=== PATIENT | male | born 2000 | race Caucasian/White ===

== ENCOUNTER 2021-08-09 21:30 | Emergency (ER) | payer MEDICAID, SELFPAY ==
[2021-08-09 21:32] VITALS: BP 152/68; PULSE 98; RESP 16; TEMP 36.6; O2SAT 98; BMI 28.8
--- NOTE | 2021-08-09 22:03 | EDS_ITS ---
HPI History of Present Illness Chief Complaint: Dental Narrative Narrative: Patient presenting for evaluation secondary to dental pain. Patient is currently in opiate rehab with 180. Patient states that he has been dealing with multiple months of dental pain. He actually states that he has scheduled for some dental extractions and root canals coming up in the next coming weeks but he has been dealing with increased issues with dental pain and has been having some swelling of the right side of his face. He was on 2 weeks of amoxicillin, nurse practitioner with 180 changed him to Flagyl today. States that he has been taking [id number] without significant relief. He den ies any fevers. Denies any immunosuppression. Review of systems otherwise negative. PFSH PFSH Medical History no medical history Home Medications clindamycin HCl 300 mg PO 4X/DAY #80 capsule 08/09/21 [Rx Last Taken Unknown] ketorolac 10 mg PO Q6H 5 Days #20 tab 08/09/21 [Rx Last Taken Unknown] Allergy/AdvReac Type Severity Reaction Status Date / Time No Known Allergies Allergy Verified 08/09/21 21:34 Social History Smoking Status: Unknown if ever smoked ROS ROS ED Constitutional Constitutional ED: Denies fever(s) ENT ENT ED: Reports other Details: Dental pain Respiratory/Chest Respiratory/Chest: Denies cough Gastrointestinal Gastrointestinal: Denies vomiting Integumentary Denies rash Neurologic Neurologic: Denies headache(s) Allergic/Immunologic Allergic/Immunologic ED: Reports mouth swelling; Denies tongue swelling EXAM Physical Exam Const Vital Signs: 08/09/21 21:32 Temperature 97.9 F Temperature Source Temporal Pulse Rate 98 Respiratory Rate 16 Blood Pressure 152/68 H Blood Pressure Mean 96 Pulse Ox 98 Oxygen Delivery Method Room Air Positive well nourished and well developed General Appearance ED: well developed HEENT HEENT Narrative: Oral exam shows the patient to have dental caries and to his right maxillary molars. There is some swelling of the cheek overlying that area but no evidence of focal gum swelling or abscess. No significant trismus although the patient does complain of some pain with opening his mouth. Soft sublingual space normal posterior pharynx. No signs of deep space infection is noted. Eyes EOMs intact bilaterally Neck no lymphadenopathy and supple Resp normal respiratory effort and clear to auscultation bilaterally Cardio regular rate, regular rhythm and no murmurs Neuro oriented x3 Sensorium / Orientation: alert Psych mental status grossly normal Skin no rashes or lesions noted MDM MDM MDM Narrative Medical decision making narrative: Patient presented with a persistent dental pain and possible dental infection with some facial swelling. No signs of deep space infection. Patient was recently changed to Flagyl which I do not think is going to provide adequate coverage for intraoral rebel. Patient will be changed to clindamycin. Patient is in drug rehabilitation, and requested not to receive any opiates. Patient be given a dose of Toradol and will be discharged with a course of the same. He is to follow-up with his dentist. Discharge Plan Triage Chief Complaint: Dental ED Provider: Efrain Lea Dx/Rx/DC Orders Clinical Impression: Dental caries Instructions: ED Dental Pain, ED Dental Cavity Prescriptions: New ketorolac 10 mg tablet 10 mg PO Q6H 5 Days Qty: 20 RF: 0 clindamycin HCl 150 mg capsule 300 mg PO 4X/DAY Qty: 80 RF: 0 Primary Care Provider: Care Physician,No Primary Referrals: NOT,DEFINED [NON-STAFF] - Activity Restrictions/Additional Instructions: Follow-up with your dentist as previously scheduled Disposition Disposition: Home, Self Care
[2021-08-09] MEDS: Clindamycin HCl 150 MG Capsule 300 MG PO (22:10)
[2021-08-09] MEDS: Ketorolac 30 MG/ML Syringe IM (22:10)
[2021-08-09 23:01] VITALS: RESP 6
== END 2021-08-09 23:01 | disposition home or self-care (01) ==
PROVIDERS: Emergency Provider Emergency Medicine
DX: K02.9 Dental caries, unspecified (principal)
CPT/HCPCS: 96372; 99283

== ENCOUNTER 2022-06-13 17:34 | Emergency (ER) | payer MEDICAID, SELFPAY ==
[2022-06-13 17:36] VITALS: BP 145/79; PULSE 98; RESP 16; TEMP 36.6; O2SAT 98; BMI 29.5
[2022-06-13 19:56] VITALS: BP 139/68; PULSE 79; RESP 18; TEMP 37.1; O2SAT 100; O2SAT 99
[2022-06-13 20:00] VITALS: BP 139/68; PULSE 79; RESP 18; TEMP 37.1; O2SAT 99
--- NOTE | 2022-06-13 20:33 | EDS_ITS ---
HPI History of Present Illness Chief Complaint: Wound Informant: patient Onset/Context/Timing Onset: Yesterday Context: Gradual Onset Timing: Continuous Quality: Sharp, aching Location: Right cheek Worsened by: Nothing Relieved by: Nothing Narrative Narrative: Patient presents with facial swelling that has been getting worse since yesterday. Patient was started on amoxicillin for this. Patient states it is over his right face. Patient states it is sharp and aching. Patient states nothing makes it better nothing makes it worse. Patient denies any fevers or chills. Patient does admit to a mild headache. Patient denies any difficulty breathing or difficulty swallowing. Patient denies any visual changes. [facility] Medical History Anxiety Taylor's palsy Depression Encounter for screening for COVID-19 Home Medications amoxicillin 875 mg-potassium clavulanate 125 mg tablet 875 mg PO Q12H #20 TABLETS 06/13/22 [Rx Last Taken Unknown] naltrexone 50 mg tablet 50 mg PO DAILY 06/13/22 [History Last Taken Unknown] sertraline 50 mg tablet 50 mg PO DAILY 06/13/22 [History Last Taken Unknown] sulfamethoxazole 800 mg-trimethoprim 160 mg tablet (Bactrim DS) 1 tab PO BID 06/13/22 [History Last Taken Unknown] trazodone 100 mg tablet 100 mg PO DAILY 06/13/22 [History Last Taken Unknown] Allergy/AdvReac Type Severity Reaction Status Date / Time No Known Allergies Allergy Verified 06/13/22 20:04 Social History Smoking Status: Current every day smoker tobacco type: e-cigarettes ROS ROS ED Constitutional Constitutional ED: Reports chills and subjective; Denies fever(s) Eyes Eyes: Denies blurry vision or change in vision ENT ENT ED: Denies rhinorrhea or sore throat Cardiovascular Cardiovascular: Denies chest pain or palpitations Respiratory/Chest Respiratory/Chest: Denies cough or dyspnea Gastrointestinal Gastrointestinal: Denies nausea or vomiting Genitourinary Genitourinary ED: Denies dysuria or hematuria Musculoskeletal Musculoskeletal: Denies back pain or neck pain Integumentary Reports abscess; Denies rash Neurologic Neurologic: Reports headache(s); Denies weakness Allergic/Immunologic Allergic/Immunologic ED: Denies mouth swelling or urticaria EXAM Physical Exam Const Vital Signs: 06/13/22 17:36 06/13/22 19:56 06/13/22 19:56 Temperature 97.9 F 98.8 F 98.8 F Temperature Source Temporal Temporal Temporal Pulse Rate 98 79 79 Respiratory Rate 16 18 18 Blood Pressure 145/79 H 139/68 H 139/68 H Blood Pressure Mean 101 91 91 Pulse Ox 98 99 100 Oxygen Delivery Method Room Air Room Air Room Air 06/13/22 20:00 06/13/22 21:23 06/13/22 21:23 Temperature 98.8 F 99.5 F H 99.5 F H Temperature Source Temporal Temporal Temporal Pulse Rate 79 67 79 Respiratory Rate 18 18 18 Blood Pressure 139/68 H 125/75 H 125/75 H Blood Pressure Mean 91 91 91 Pulse Ox 99 99 100 Oxygen Delivery Method Room Air Room Air Room Air Positive well nourished and well developed General Appearance ED: well developed and NAD HEENT Reports moist mucous membranes HEENT Narrative: There is edema and tenderness over the right cheek area. There is no induration. There is no fluctuance. Oral mucosa pink and moist. There is no dental caries noted. There is no tenderness over the upper or lower molars. Oropharynx is clear. Airway is patent. Neck is supple. Trachea is midline. There is no JVD or lymphadenopathy. There is no sublingual edema or evidence of Yazan's angina. Eyes PERRL and EOMs intact bilaterally Neck no lymphadenopathy, supple and no JVD Resp normal respiratory effort and clear to auscultation bilaterally Cardio regular rate and regular rhythm Neuro oriented x3, CN's II-XII intact bilaterally and no sensory deficits noted Sensorium / Orientation: alert Motor Exam: strength 5/5 throughout Psych mental status grossly normal MDM MDM MDM Narrative Medical decision making narrative: Patient was given a dose of Unasyn here. CBC was within normal limits. Basic metabolic profile was within normal limits. Blood cultures were obtained and are pending. Patient was given a prescription for Augmentin. Patient was instructed to stop the amoxicillin. Patient was instructed to follow-up with his primary care physician in 5 to 7 days. Patient understood and was agreeable with the plan. All questions were answered. Lab Data Attestation: I reviewed the patient's lab results. Labs: Laboratory Results - last 24 hr 06/13/22 06/13/22 20:44 20:44 WBC 9.6 RBC 4.78 Hgb 14.5 Hct 45.1 MCV 94.4 H MCH 30.3 MCHC 32.2 RDW Std Deviation 42.4 RDW Coeff of Santino 12.0 Plt Count 307 MPV 8.9 Immature Gran % (Auto) 0.400 Neut % (Auto) 75.8 H Lymph % (Auto) 13.5 L [place] % (Auto) 9.5 Eos % (Auto) 0.5 Baso % (Auto) 0.3 Absolute Neuts (auto) 7.3 Absolute Lymphs (auto) 1.30 Nucleated RBC % 0 Sodium 139 Potassium 3.7 Chloride 105 Carbon Dioxide 28.0 Anion Gap 6 BUN 7 Creatinine 1.00 Estim Creat Clear Calc 134.72 Est GFR (MDRD) Af Amer 119 Est GFR (MDRD) Non-Af 99 BUN/Creatinine Ratio 7.0 L Glucose 88 Calcium 9.3 Discharge Plan Triage Chief Complaint: Wound ED Provider: Juvencio Amezcua Dx/Rx/DC Orders Clinical Impression: Facial cellulitis Instructions: ED Cellulitis, Facial Prescriptions: New amoxicillin-pot clavulanate [amoxicillin-pot clavulanate] 875 MG tablet 875 mg PO Q12H Qty: 20 0RF Discontinued amoxicillin 500 mg capsule 500 mg PO TID No Action naltrexone 50 mg Tablet 50 mg PO DAILY sulfamethoxazole-trimethoprim [Bactrim DS] 800-160 mg Tablet 1 tab PO BID trazodone 100 mg Tablet 100 mg PO DAILY sertraline 50 mg Tablet 50 mg PO DAILY Primary Care Provider: Care Physician,No Primary Referrals: Care Physician,No Primary [Primary Care Provider] - Kourtney Lockett [Non-Staff] - 3-5 Days Disposition Disposition: Home, Self Care
[2022-06-13 20:57] LABS: Absolute Neutrophil Count 7.3 X10^3/uL (2.0-7.7); Basophil# 0.03 X10^3/uL; Basophil% 0.3 % (0-1); Eosinophil# 0.05 X10^3/uL; Eosinophils% 0.5 % (0-5); Hematocrit 45.1 % (40-54); Hemoglobin 14.5 g/dL (13.0-16.5); Lymphocyte % 13.5 % (19-41); Mean Corp Hgb Conc 32.2 g/dL (32-36); Mean Corpuscular Hgb 30.3 pg (27.0-32.0); Mean Corpuscular Volume 94.4 fL (80-94); Mean Platelet Vol. 8.9 fl (6.2-12.0); Monocyte# 0.91 X10^3/uL; Monocyte% 9.5 % (0-10); NRBC Flagged by Analyzer 0 % (0-5); Neutrophil # 7.27 X10^3/uL (2.7-7.7); Neutrophil % 75.8 % (47-70); Platelet Count 307 K/mm3 (150-450); RBC Distribution Width SD 42.4 fl (35.1-43.9); Red Blood Count 4.78 M/mm3 (4.6-6.2); White Blood Count 9.6 K/mm3 (4.4-11.0)
[2022-06-13 21:12] LABS: Anion Gap 6 (5-15); BUN 7 mg/dL (7-18); Calcium,Total 9.3 mg/dL (8.5-10.1); Chloride 105 mmol/L (98-107); EST Glomerular Filtration Rate 99 mL/min (>60); Est Glom Filt Rate - Afr Amer 119 mL/min (>60); Estimated Creatinine Clearance 134.72 ml/min; Glucose 88 mg/dL (74-106); Potassium 3.7 mmol/L (3.5-5.1); Sodium Level 139 mmol/L (136-145)
[2022-06-13 21:23] VITALS: BP 125/75; PULSE 67; PULSE 79; RESP 18; TEMP 37.5; O2SAT 100; O2SAT 99
== END 2022-06-13 22:50 | disposition home or self-care (01) ==
PROVIDERS: Emergency Provider Emergency Medicine; Visit Provider Emergency Medicine
DX: L03.211 Cellulitis of face (principal); F17.290 Nicotine dependence, other tobacco product, uncomplicated; R51.9 Headache, unspecified
CPT/HCPCS: 36415; 80048; 85025; 87040; 96365; 99283; J7050; A4216; J0295

== ENCOUNTER 2022-07-21 01:18 | Emergency (ER) | payer MEDICAID, SELFPAY ==
[2022-07-21 01:19] VITALS: BP 139/70; PULSE 79; RESP 18; TEMP 36.6; O2SAT 99; BMI 31.4
--- NOTE | 2022-07-21 02:17 | CT_ITS ---
STUDY: CT ABDOMEN AND PELVIS WITH CONTRAST REASON FOR EXAM: Male, 22 years old. RLQ pain. TECHNIQUE: IV Contrast: IV 100mL Isovue-370 Enteric contrast: None administered. Axial images obtained. Coronal and sagittal reformatted images provided. Individualized dose optimization techniques were used for this CT. COMPARISON: None. FINDINGS: Partially visualized lower chest: Lung bases unremarkable. Liver: No concerning lesions. Gallbladder and biliary tree: No visible gallstones. No pericholecystic inflammation. No biliary ductal dilation. Pancreas: No pancreatic lesions or inflammation. Spleen: Normal size, no splenic lesions. Adrenal glands: No concerning masses. Kidneys and ureters: No hydronephrosis or renal stones. No concerning masses. No ureteral dilation. Bowel: Normal appendix. No obstruction or inflammation of the bowel. Urinary bladder: No stones or wall thickening. Reproductive:Normal size prostate. Vascular: No abdominal aortic aneurysm. Patent portal, mesenteric and systemic veins. Retroperitoneal and peritoneal spaces: No ascites or free air. No retroperitoneal lesions. Osseous: No acute osseous abnormality. Abdominal and pelvic wall: No concerning findings. CT/Abdomen/Pelvis W IV Cont ONLY IMPRESSION: No acute or concerning findings. Electronically Signed: Emre Bolanos MD at 3:43 EDT Reading Location ID and State: [address] [place] [address] Tel , Service support ,
[2022-07-21 02:24] LABS: Mucous, Urine 0 SEEN /hpf (<or=2+); Squamous Epithelial Cells - UA 0 SEEN /hpf (0-5)
[2022-07-21] MEDS: 0.9% Normal Saline 1,000 ML 999 ML IV (02:26)
[2022-07-21 02:31] LABS: Absolute Lymphocyte Count 2.85 X10^3/uL (0.83-4.51); Basophil# 0.09 X10^3/uL; Basophil% 1.1 % (0-1); Eosinophil# 0.41 X10^3/uL; Hematocrit 41.9 % (40-54); Hemoglobin 14.1 g/dL (13.0-16.5); Lymphocyte # 2.85 X10^3/ul (0.83-4.51); Lymphocyte % 34.8 % (19-41); Mean Corp Hgb Conc 33.7 g/dL (32-36); Mean Corpuscular Hgb 31.7 pg (27.0-32.0); Mean Corpuscular Volume 94.2 fL (80-94); Mean Platelet Vol. 9.3 fl (6.2-12.0); Monocyte# 0.76 X10^3/uL; Monocyte% 9.3 % (0-10); NRBC Flagged by Analyzer 0 % (0-5); Neutrophil # 4.01 X10^3/uL (2.7-7.7); Neutrophil % 49.1 % (47-70); Platelet Count 307 K/mm3 (150-450); RBC Distribution Width CV 12.4 % (11.6-14.6); RBC Distribution Width SD 43.2 fl (35.1-43.9); Red Blood Count 4.45 M/mm3 (4.6-6.2); White Blood Count 8.2 K/mm3 (4.4-11.0)
[2022-07-21 02:32] LABS: Color, Urine Yellow (Yellow); Glucose, Dipstick Normal (Normal); Ketone-Dipstick 5 mg/dl (Negative); Leukocyte Esterase-Dipstick 25 /ul (Negative); Nitrite-Dipstick Negative (Negative); Occult Blood-Urine 10 /ul (Negative); Protein-Dipstick Negative (Negative); Urine Bilirubin Dipstick Negative (Negative); Urine Clarity Clear (Clear); Urine Urobilinogen 1 mg/dl (Normal)
[2022-07-21 02:48] LABS: Bacteria RARE /hpf (None Seen); Red Blood Cells-Urine 0-5 SEEN /hpf (0-5); White Blood Cells 0-5 SEEN /hpf (0-5)
[2022-07-21 03:06] LABS: Lactic Acid 1.1 mmol/L (0.4-1.9)
[2022-07-21 03:07] LABS: AST(SGOT) 15 U/L (15-37); Alanine Aminotransfer ALT/SGPT 19 U/L (16-61); Albumin, Serum 3.7 g/dL (3.2-5.0); Alkaline Phosphatase 70 U/L (45-117); Anion Gap 6 (5-15); BUN 13 mg/dL (7-18); Bilirubin, Direct 0.09 mg/dL (0.00-0.30); Calcium,Total 8.6 mg/dL (8.5-10.1); Chloride 107 mmol/L (98-107); Creatinine, Serum 1.08 mg/dL (0.70-1.30); EST Glomerular Filtration Rate 90 mL/min (>60); Est Glom Filt Rate - Afr Amer 109 mL/min (>60); Estimated Creatinine Clearance 123.68 ml/min; Globulin 3.1 g/dL (2.2-4.2); Glucose 113 mg/dL (74-106); Lipase 113 U/L (73-393); Potassium 3.6 mmol/L (3.5-5.1); Protein, Total 6.8 g/dL (6.4-8.2); Sodium Level 140 mmol/L (136-145)
--- NOTE | 2022-07-21 03:58 | EX.ED.DYSGE1 ---
HPI History of Present Illness Chief Complaint: Abd Pain Narrative Narrative: Patient is a 22-year-old male with past medical history of opioid abuse. He states that for years he has been getting intermittent abdominal spasm/pain. He states however that throughout the day today he has had persistent pain mainly in his right lower quadrant which is more intense and more persistent than any pain he has had in the past. He denies fevers chills nausea vomiting diarrhea dysuria or hematuria. He denies any trauma or excessive activity. He states that because of the prolonged nature of the pain and the fact is more severe he was concerned this may be different than his baseline and therefore comes in for evaluation [facility] Medical History Anxiety Taylor's palsy Depression Encounter for screening for COVID-19 Home Medications naltrexone 50 mg tablet 50 mg PO DAILY 06/13/22 [History Last Taken Unknown] sertraline 50 mg tablet 75 mg PO DAILY 06/13/22 [History Last Taken Unknown] trazodone 100 mg tablet 100 mg PO QHS 06/13/22 [History Last Taken Unknown] Allergy/AdvReac Type Severity Reaction Status Date / Time No Known Allergies Allergy Verified 07/21/22 01:19 Social History Smoking Status: Current every day smoker tobacco type: e-cigarettes ROS ROS ED Constitutional Constitutional ED: Denies chills or fever(s) ENT ENT ED: Denies sore throat Cardiovascular Cardiovascular: Denies chest pain Respiratory/Chest Respiratory/Chest: Denies cough or dyspnea Gastrointestinal Gastrointestinal: Reports abdominal pain; Denies diarrhea, nausea or vomiting Genitourinary Genitourinary ED: Denies dysuria or hematuria Musculoskeletal Musculoskeletal: Denies back pain or myalgias Integumentary Denies rash Neurologic Neurologic: Denies headache(s) Hematologic/Lymphatic Hematologic/Lymphatic: Denies easy bleeding or easy bruising EXAM Physical Exam Const Vital Signs: 07/21/22 01:19 07/21/22 04:04 Temperature 97.8 F Temperature Source Temporal Pulse Rate 79 73 Respiratory Rate 18 17 Blood Pressure 139/70 H 120/55 L Blood Pressure Mean 93 Pulse Ox 99 100 Oxygen Delivery Method Room Air Positive well nourished and well developed General Appearance ED: well developed HEENT Reports moist mucous membranes Eyes PERRL and EOMs intact bilaterally Neck supple Resp normal respiratory effort and clear to auscultation bilaterally Cardio regular rate and regular rhythm GI non-distended GI Narrative: Abdomen is soft and nondistended with normoactive bowel sounds. Patient has pain with voluntary guarding in the right lower quadrant. Negative rebound. Negative heel strike psoas and obturator signs as well. Auscultation: normoactive bowel sounds Palpation: soft Back/Spine no CVA tenderness Extremity normal to inspection Neuro oriented x3 and CN's II-XII intact bilaterally Sensorium / Orientation: alert Psych Psych Narrative: Patient has a flat affect Skin no rashes or lesions noted MDM MDM MDM Narrative Medical decision making narrative: Patient presented to the ER hypertensive but otherwise with stable vitals. He had increased pain in the right lower quadrant from his baseline with mild guarding so I did feel concerned about possible appendicitis and elected perform basic labs and CT scan. Labs revealed no clinically significant changes and CT scan showed no acute intestinal pathology such as acute appendicitis. On reevaluation he reports feeling better and therefore at this time with negative work-up and improvement of symptoms he is otherwise safe for discharge Lab Data Attestation: I reviewed the patient's lab results. Labs: Laboratory Results - last 24 hr 07/21/22 07/21/22 07/21/22 01:45 01:45 01:50 WBC 8.2 RBC 4.45 L Hgb 14.1 Hct 41.9 MCV 94.2 H MCH 31.7 MCHC 33.7 RDW Std Deviation 43.2 RDW Coeff of Santino 12.4 Plt Count 307 MPV 9.3 Immature Gran % (Auto) 0.700 Neut % (Auto) 49.1 Lymph % (Auto) 34.8 [place] % (Auto) 9.3 Eos % (Auto) 5.0 Baso % (Auto) 1.1 H Absolute Neuts (auto) 4.0 Absolute Lymphs (auto) 2.85 Nucleated RBC % 0 Sodium 140 Potassium 3.6 Chloride 107 Carbon Dioxide 27.0 Anion Gap 6 BUN 13 Creatinine 1.08 Estim Creat Clear Calc 123.68 Est GFR (MDRD) Af Amer 109 Est GFR (MDRD) Non-Af 90 BUN/Creatinine Ratio 12.0 Glucose 113 H Lactic Acid Calcium 8.6 Total Bilirubin 0.30 Direct Bilirubin 0.09 AST 15 ALT 19 Alkaline Phosphatase 70 Total Protein 6.8 Albumin 3.7 Globulin 3.1 Lipase 113 Urine Color Yellow Urine Clarity Clear Urine pH 6.0 Ur Specific [place] 1.020 Urine Protein Negative Urine Glucose (UA) Normal Urine Ketones 5 H Urine Occult Blood 10 H Urine Nitrite Negative Urine Bilirubin Negative Urine Urobilinogen 1 H Ur Leukocyte Esterase 25 H Urine RBC 0-5 SEEN Urine WBC 0-5 SEEN Ur Squamous Epith Cells 0 SEEN Urine Bacteria RARE Urine Mucus 0 SEEN 07/21/22 02:26 WBC RBC Hgb Hct MCV MCH MCHC RDW Std Deviation RDW Coeff of Santino Plt Count MPV Immature Gran % (Auto) Neut % (Auto) Lymph % (Auto) [place] % (Auto) Eos % (Auto) Baso % (Auto) Absolute Neuts (auto) Absolute Lymphs (auto) Nucleated RBC % Sodium Potassium Chloride Carbon Dioxide Anion Gap BUN Creatinine Estim Creat Clear Calc Est GFR (MDRD) Af Amer Est GFR (MDRD) Non-Af BUN/Creatinine Ratio Glucose Lactic Acid 1.1 Calcium Total Bilirubin Direct Bilirubin AST ALT Alkaline Phosphatase Total Protein Albumin Globulin Lipase Urine Color Urine Clarity Urine pH Ur Specific [place] Urine Protein Urine Glucose (UA) Urine Ketones Urine Occult Blood Urine Nitrite Urine Bilirubin Urine Urobilinogen Ur Leukocyte Esterase Urine RBC Urine WBC Ur Squamous Epith Cells Urine Bacteria Urine Mucus Radiography Diagnostic Testing: Clinical Impression(s) from Imaging Studies Abdomen/Pelvis CT 07/21/22 02:17 IMPRESSION: No acute or concerning findings. Electronically Signed: Emre Bolanos MD at 3:43 EDT Reading Location ID and State: [address] [place] [address] Tel , Service support , Discharge Plan Triage Chief Complaint: Abd Pain ED Provider: Jacky Becerril Dx/Rx/DC Orders Clinical Impression: Nonspecific abdominal pain, History of opioid abuse Instructions: Abdominal Pain Prescriptions: No Action naltrexone 50 mg Tablet 50 mg PO DAILY trazodone 100 mg Tablet 100 mg PO QHS sertraline 50 mg Tablet 75 mg PO DAILY Primary Care Provider: Care Physician,No Primary Referrals: Fast,Norah, DO [Med Staff - Weight Training Instructor] - Care Physician,No Primary [Primary Care Provider] - Disposition Disposition: Home, Self Care Discharge Date/Time: 07/21/22 04:12
[2022-07-21 04:04] VITALS: BP 120/55; PULSE 73; RESP 17; O2SAT 100
== END 2022-07-21 04:12 | disposition home or self-care (01) ==
PROVIDERS: Emergency Provider Emergency Medicine; Visit Provider Emergency Medicine
DX: R10.9 Unspecified abdominal pain (principal); F17.290 Nicotine dependence, other tobacco product, uncomplicated; Z87.898 Personal history of other specified conditions
CPT/HCPCS: 74177; 80048; 80076; 81001; 83605; 83690; 85025; 96360; 99283; J7030; Q9967; A4216

== ENCOUNTER 2022-09-12 16:39 | Emergency (ER) | payer MEDICAID, SELFPAY ==
[2022-09-12 16:40] VITALS: BP 124/62; PULSE 94; RESP 16; TEMP 36.4; O2SAT 98; BMI 31.6
[2022-09-12 17:29] VITALS: BP 124/62; PULSE 94; RESP 16; TEMP 36.4; O2SAT 98
--- NOTE | 2022-09-12 17:52 | EX.ED.GUMALE ---
HPI History of Present Illness Chief Complaint: Complaint Detail of Chief Complaint: STD exposure without symptoms. Informant: patient Related History Sexually: Active Unprotected Sex: Yes STD: No Epididymitis: No Bladder/Kidney Infection: No Enlarged Prostate: No Prostate Infection: No Prostate Cancer: No Narrative Narrative: 22-year-old male history of past medical history. States a former room when he had intercourse with tested positive for chlamydia and he wanted to get tested. He denies any symptoms. Prior similar symptoms: No Recent Illness/Hospitalization: No PFSH PFSH Medical History Anxiety Taylor's palsy Depression Encounter for screening for COVID-19 Home Medications buspirone 15 mg tablet 15 mg PO DAILY 09/12/22 [History Last Taken Unknown] Allergy/AdvReac Type Severity Reaction Status Date / Time No Known Allergies Allergy Verified 09/12/22 16:42 Social History Smoking Status: Current every day smoker tobacco type: e-cigarettes ROS ROS ED ROS Narrative Denies any symptoms. Review of Systems ROS Unobtainable: Denies due to encephalopathy Constitutional Constitutional ED: Denies chills Eyes Eyes: Denies blurry vision ENT ENT ED: Denies ear pain Cardiovascular Cardiovascular: Denies chest pain Respiratory/Chest Respiratory/Chest: Denies cough Gastrointestinal Gastrointestinal: Denies abdominal pain Genitourinary Genitourinary ED: Denies dysuria, hematuria or urinary frequency Musculoskeletal Musculoskeletal: Denies arthralgias Integumentary Denies abscess Neurologic Neurologic: Denies headache(s) Endocrine Endocrinology: Denies polydipsia Hematologic/Lymphatic Hematologic/Lymphatic: Denies easy bleeding Allergic/Immunologic Allergic/Immunologic ED: Denies mouth swelling or tongue swelling EXAM Physical Exam Narrative Exam Narrative: 19-year-old male no acute distress vital signs stable afebrile. Exam normal. External exam circumcised male. No discharge. No discoloration. No lymphadenopathy or ulcerations. Const Vital Signs: 09/12/22 16:40 09/12/22 17:29 Temperature 97.6 F L 97.6 F L Temperature Source Temporal Temporal Pulse Rate 94 94 Respiratory Rate 16 16 Blood Pressure 124/62 H 124/62 H Blood Pressure Mean 82 82 Pulse Ox 98 98 Oxygen Delivery Method Room Air Room Air Positive well nourished, well developed and obese; Negative for cachectic, contractures or unkempt General Appearance ED: well developed and NAD; Negative for unkempt, cachectic, contractures or pallor Nutritional Appearance: obese; Negative for cachectic HEENT Reports moist mucous membranes; Denies dry mucous membranes normocephalic and atraumatic; Negative for trauma Mouth ED: No dry mucous membranes Mouth: No dry mucous membranes Eyes PERRL and EOMs intact bilaterally General Eye ED: Negative for pale conjunctiva or scleral icterus Neck no lymphadenopathy, supple and no JVD General: Negative for tenderness Resp normal respiratory effort and clear to auscultation bilaterally Effort and Inspection: Negative for retractions Auscultation: Negative for rales, rhonchi or wheezes Cardio regular rate, regular rhythm, S1 normal heart sound, S2 normal heart sound and no murmurs Rate: Negative for bradycardia Rhythm: Negative for abnormal rhythm Heart Sounds: Negative for other GI non-tender, non-distended and no masses Inspection: Negative for abdominal distention Auscultation: normoactive bowel sounds Palpation: soft; Negative for tender no CVA tenderness Narrative: External exam normal. No discharge. Nontender. Circumcised. Bladder / Kidney Exam: No CVA tenderness Groin / Perineum Exam: Negative for edema Back/Spine no CVA tenderness Extremity normal to inspection General Extremety ED: Negative for edema General Extremity: Negative for edema Neuro oriented x3, CN's II-XII intact bilaterally, moves all extremities and no focal motor deficits Sensorium / Orientation: alert, oriented to person, oriented to place and oriented to time; Negative for orientation impaired, confused, lethargic or stuporous Sensory Exam: sensory level loss detected Motor Exam: strength 5/5 throughout Psych mental status grossly normal Appearance: Negative for unkempt Attitude: No agitated Mood & Affect: Negative for depressed Thought Process: normal thought process Thought Content: normal thought content Skin General Skin Exam: Negative for jaundice or pallor Lesions: no lesions Rashes: no rashes Trauma: Negative for abrasion MDM MDM MDM Narrative Medical decision making narrative: 22-year-old male recent sexual partner tested positive for chlamydia. He and I discussed options he chose just to be treated. He will be given IM Rocephin and p.o. Zithromax. Discharged home. Discharge Plan Triage Chief Complaint: Complaint ED Provider: Dannie Rowell Dx/Rx/DC Orders Clinical Impression: STD exposure Instructions: ED STI Male Treated Prescriptions: No Action buspirone 15 mg tablet 15 mg PO DAILY Label Comments: Take 1 tablet by mouth twice a day Primary Care Provider: Care Physician,No Primary Referrals: Lorenzo Herrera MD [Med Staff - Thoracic Medicine Physician] - As Needed Care Physician,No Primary [Primary Care Provider] - Activity Restrictions/Additional Instructions: You were treated for both gonorrhea and chlamydia. You are not tested. Disposition Disposition: Home, Self Care
[2022-09-12] MEDS: Ceftriaxone 500 MG Vial 250 MG IM (18:27)
[2022-09-12] MEDS: Azithromycin 250 MG Tablet 1000 MG PO (18:27)
== END 2022-09-12 18:47 | disposition home or self-care (01) ==
PROVIDERS: Emergency Provider Emergency Medicine; Visit Provider Emergency Medicine
DX: Z20.2 Contact with and (suspected) exposure to infections with a predominantly sexual mode of transmission (principal); F41.9 Anxiety disorder, unspecified; F17.290 Nicotine dependence, other tobacco product, uncomplicated; F32.A Depression, unspecified; E66.9 Obesity, unspecified; Z79.899 Other long term (current) drug therapy
CPT/HCPCS: 96372; 99283